=== PATIENT | female | born 1940 | race Two or more races ===

== ENCOUNTER 2023-05-03 10:42 | Emergency (ER) | payer OTHER ==
[~2023-05-03] VITALS: Ht 157.5 cm; Wt 53.5 kg
[2023-05-03] MEDS ORDERED: COZAAR50 MG (11:12)
== END 2023-05-03 12:53 | disposition home or self-care (01) ==
LOC: ER 10:42
DX: H10.89 Other conjunctivitis (principal); Z88.0 Allergy status to penicillin